=== PATIENT | female | born 1940 | race Caucasian/White ===

== ENCOUNTER 2017-04-29 17:56 | Emergency (ER) | payer MEDICARE, OTHER ==
[~2017-04-29] VITALS: Ht 160 cm; Wt 70.8 kg
[~2017-04-29 17:56] MED LIST: COZAAR 25 MG TA25 M2 PO; ELIQUIS2.5 MG PO; MAXZIDE-25 MG1 EACH PO; TRAMADOL 50 MG50 MG PO; ZOCOR20 MG PO
[2017-04-29] MEDS ORDERED: DYRENIUM50 MG PO (18:12)
[2017-04-29] MEDS ORDERED: TUMS PO (18:12)
[2017-04-29] MEDS ORDERED: KEFLEX500 M1 PO (18:49)
[2017-04-29 19:08] VITALS: BP 114/69
== END 2017-04-29 19:09 | disposition home or self-care (01) ==
LOC: M.ERS 17:56
DX: S61.233A Puncture wound without foreign body of left middle finger without damage to nail, initial encounter (principal); I10 Essential (primary) hypertension; E78.5 Hyperlipidemia, unspecified; Z88.5 Allergy status to narcotic agent; W22.8XXA Striking against or struck by other objects, initial encounter; Y93.89 Activity, other specified; Y92.89 Other specified places as the place of occurrence of the external cause; Y99.8 Other external cause status

== ENCOUNTER → 2019-03-15 | Outpatient (CLI) | payer MEDICARE, OTHER ==
[~2019-03-15] MED LIST changes: +DYRENIUM50 MG PO; +KEFLEX500 M1 PO; +TUMS PO
== END ==
LOC: M.RAD 13:20
DX: Z12.31 Encounter for screening mammogram for malignant neoplasm of breast (principal)

== ENCOUNTER → 2020-06-17 | Outpatient (CLI) | payer MEDICARE, OTHER | LOC: M.RAD 09:54 | PROVIDERS: ATTEND Family Medicine | DX: Z12.31 Encounter for screening mammogram for malignant neoplasm of breast (principal) ==